=== PATIENT | male | born 1990 | race Caucasian/White ===

== ENCOUNTER 2018-09-21 19:59 | Emergency (ER) | payer OTHER ==
[~2018-09-21] VITALS: Ht 167.6 cm; Wt 72.1 kg
[2018-09-21 20:20] VITALS: Ht 167.6 cm; Wt 72.1 kg
[2018-09-21 21:29] VITALS: BP 127/80
== END 2018-09-21 21:29 | disposition home or self-care (01) ==
LOC: ED 19:59
DX: A08.4 Viral intestinal infection, unspecified (principal); Z88.0 Allergy status to penicillin
CPT/HCPCS: J2405; J7030

== ENCOUNTER 2018-12-19 21:48 | Emergency (ER) | payer OTHER ==
[~2018-12-19] VITALS: Ht 167.6 cm; Wt 67.1 kg
[2018-12-19 21:49] VITALS: Ht 167.6 cm; Wt 67.1 kg
[2018-12-20 01:19] VITALS: BP 123/85
== END 2018-12-20 01:20 | disposition left against medical advice (07) ==
LOC: ED 21:48
DX: Z53.21 Procedure and treatment not carried out due to patient leaving prior to being seen by health care provider (principal)